=== PATIENT | male | born 1965 | race Caucasian/White ===

== ENCOUNTER 2019-08-26 22:17 | Emergency (ER) | payer SELFPAY ==
[2019-08-27] MEDS ORDERED: ASPIRIN 325 MG TAB PO ONE (01:17)
[2019-08-27 01:18] VITALS: BP 125/80
--- NOTE | 2019-08-27 01:52 | XRay Report ---
CHEST 1 VIEW INDICATION: Chest Pain. COMPARISON: 08/14/2018 FINDINGS: SUPPORT DEVICES: None. HEART / MEDIASTINUM: No significant abnormality. LUNGS / PLEURA: No significant pulmonary or pleural abnormality. No pneumothorax. ADDITIONAL FINDINGS: Median sternotomy changes noted IMPRESSION: 1. No acute findings. Signer Name: Anupam Red MD Signed: 08/27/2019 1:48 AM Workstation Name: [id number]
[2019-08-27 02:13] LABS: Basophils % (Auto) 0.5 % (0.0-1.8); Eosinophils # (Auto) 0.1 K/mm3 (0.0-0.4); Eosinophils % (Auto) 0.9 % (0.0-4.3); Hematocrit 48.1 % (35.5-45.6); Hemoglobin 16.6 gm/dl (11.8-15.2); Lymphocytes # (Auto) 1.8 K/mm3 (1.2-5.4); Lymphocytes % (Auto) 29.4 % (13.4-35.0); Mean Corpuscular HGB Conc 34 % (32-34); Mean Corpuscular Volume 97 fl (84-94); Monocytes # (Auto) 0.5 K/mm3 (0.0-0.8); Monocytes % (Auto) 8.8 % (0.0-7.3); Platelet Count 188 K/mm3 (140-440); Red Blood Count 4.99 M/mm3 (3.65-5.03); Red Cell Distribution Width 13.8 % (13.2-15.2)
[2019-08-27 02:36] LABS: BUN/Creatinine Ratio 26; Blood Urea Nitrogen 18 mg/dL (9-20); Calcium 9.3 mg/dL (8.4-10.2); Hemolysis Index 56
== END 2019-08-27 03:34 ==
LOC: ED 22:17
DX: R07.89 Other chest pain (principal); Z53.21 Procedure and treatment not carried out due to patient leaving prior to being seen by health care provider
CPT/HCPCS: 36415; 71045; 80048; 84484; 85025; 93005; 93010

== ENCOUNTER 2019-09-01 21:55 | Emergency (ER) | payer SELFPAY ==
[2019-09-01] MEDS ORDERED: ASPIRIN 325 MG TAB PO ONE (22:31)
--- NOTE | 2019-09-01 22:31 | Event Note ---
ED Screening Note Date of service: 09/01/19 Time: 22:30 ED Screening Note: 54 y o male with pmh of Herat dz and surgery presents with chest pain This initial assessment/diagnostic orders/clinical plan/treatment(s) is/are subject to change based on patients health status, clinical progression and re- assessment by fellow clinical providers in the ED. Further treatment and workup at subsequent clinical providers discretion. Patient/guardian urged not to elope from the ED as their condition may be serious if not clinically assessed and managed. Initial orders include: labs, ekg main side eval
[2019-09-01 23:30] LABS: Basophils % (Auto) 0.5 % (0.0-1.8); Eosinophils % (Auto) 0.6 % (0.0-4.3); Hematocrit 47.4 % (35.5-45.6); Hemoglobin 16.6 gm/dl (11.8-15.2); Lymphocytes # (Auto) 1.5 K/mm3 (1.2-5.4); Lymphocytes % (Auto) 23.6 % (13.4-35.0); Mean Corpuscular HGB Conc 35 % (32-34); Mean Corpuscular Volume 95 fl (84-94); Monocytes # (Auto) 0.6 K/mm3 (0.0-0.8); Monocytes % (Auto) 9.8 % (0.0-7.3); Platelet Count 169 K/mm3 (140-440); Red Blood Count 4.98 M/mm3 (3.65-5.03); Red Cell Distribution Width 13.7 % (13.2-15.2)
[2019-09-01 23:38] LABS: INR 2.61 (0.87-1.13)
[2019-09-01 23:39] LABS: Partial Thromboplastin Time 37.8 Sec. (24.2-36.6)
[2019-09-01 23:52] LABS: BUN/Creatinine Ratio 17; Blood Urea Nitrogen 15 mg/dL (9-20); Calcium 9.5 mg/dL (8.4-10.2); Hemolysis Index 16
--- NOTE | 2019-09-01 23:52 | XRay Report ---
CHEST PA AND LATERAL VIEWS INDICATION: Chest Pain. COMPARISON: 08/27/2019 FINDINGS: Support devices: None Heart: Normal and unchanged previous sternotomy with mitral valve prosthesis Lungs/Pleura: No acute pulmonary or pleural findings. IMPRESSION: 1. No acute disease and no interval change. Signer Name: Vito Martin MD Signed: 09/01/2019 11:48 PM Workstation Name: [id number]
[2019-09-02] MEDS ORDERED: ALUM-MAG HYDROXIDE-SIMETHICONE 200-200-20MG/5ML ORAL LIQD 30 ML PO ONE (01:59)
[2019-09-02] MEDS ORDERED: FAMOTIDINE 20 MG/2 ML INJ IV ONE (01:59)
[2019-09-02] MEDS ORDERED: LIDOCAINE VISCOUS 2% 15 ML ORAL LIQD PO ONE (01:59)
[2019-09-02] MEDS ORDERED: FAMOTIDINE 20 MG TAB ONE (03:08)
--- NOTE | 2019-09-02 03:28 | Emergency Department Report ---
ED Abdominal Pain HPI - General Chief Complaint: Chest Pain Stated Complaint: CHEST PAIN Time Seen by Provider: 09/02/19 01:48 Source: patient Mode of arrival: Ambulatory Limitations: No Limitations - History of Present Illness Initial Comments: Patient is a 54-year-old male with a past medical history diabetes hypertension and an MT who is presenting with epigastric and left upper quadrant pain that he states radiates into his chest. It's worse when he eats. Since been present for approximately a week. Patient states he was placed on me dications by his primary doctor for gastritis he states is not helping. Patient states that the pain as a 5 out of 10 at its worse. - Related Data Previous Rx's Medication Instructions Recorded Last Taken Type Phenazopyridine [Pyridium] 200 mg PO TID #6 tablet 01/24/14 Unknown Rx Sulfamethoxazole/Trimethoprim 1 each PO BID #28 tablet 01/24/14 Unknown Rx [Bactrim DS TAB] Furosemide [Lasix TAB] 40 mg PO QDAY #30 tablet 08/23/18 Unknown Rx Spironolactone [Aldactone] 25 mg PO QDAY #30 tablet 08/23/18 Unknown Rx Warfarin [Coumadin] 7.5 mg PO QDAY #30 tablet 08/23/18 Unknown Rx carvediloL [Coreg] 6.25 mg PO BID #60 tablet 08/23/18 Unknown Rx guaiFENesin ER [Mucinex ER] 600 mg PO BID #10 tablet 08/23/18 Unknown Rx Pantoprazole [Protonix] 40 mg PO QDAY #30 tablet 09/02/19 Unknown Rx traMADoL [Ultram] 50 mg PO Q6HR PRN #12 tablet 09/02/19 Unknown Rx Allergies Allergy/AdvReac Type Severity Reaction Status Date / Time No Known Allergies Allergy Unverified 01/24/14 16:20 ED Review of Systems ROS: Stated complaint: CHEST PAIN Other details as noted in HPI Comment: All other systems reviewed and negative ED Past Medical Hx - Past Medical History Previous Medical History?: Yes Hx Hypertension: Yes Hx Heart Attack/AMI: Yes Hx Diabetes: Yes Additional medical history: HOLE IN HEART, WARFARIN [place]. - Surgical History Past Surgical History?: Yes Hx Open Heart Surgery: Yes Additional Surgical History: MITRAL VALVE SGX DUE TO INFECTION? - Social History Smoking Status: Former Smoker Substance Use Type: None - Medications Home Medications: Home Medications Medication Instructions Recorded Confirmed Last Taken Type Phenazopyridine [Pyridium] 200 mg PO TID #6 tablet 01/24/14 08/16/18 Unknown Rx Sulfamethoxazole/Trimethoprim 1 each PO BID #28 tablet 01/24/14 08/16/18 Unknown Rx [Bactrim DS TAB] Furosemide [Lasix TAB] 40 mg PO QDAY #30 tablet 08/23/18 Unknown Rx Spironolactone [Aldactone] 25 mg PO QDAY #30 tablet 08/23/18 Unknown Rx Warfarin [Coumadin] 7.5 mg PO QDAY #30 tablet 08/23/18 Unknown Rx carvediloL [Coreg] 6.25 mg PO BID #60 tablet 08/23/18 Unknown Rx guaiFENesin ER [Mucinex ER] 600 mg PO BID #10 tablet 08/23/18 Unknown Rx Pantoprazole [Protonix] 40 mg PO QDAY #30 tablet 09/02/19 Unknown Rx traMADoL [Ultram] 50 mg PO Q6HR PRN #12 tablet 09/02/19 Unknown Rx ED Physical Exam - General Limitations: No Limitations General appearance: alert, in no apparent distress - Head Head exam: Present: atraumatic, normocephalic - Eye Eye exam: Present: normal appearance - ENT ENT exam: Present: mucous membranes moist - Neck Neck exam: Present: normal inspection - Respiratory Respiratory exam: Present: normal lung sounds bilaterally. Absent: respiratory distress, wheezes, rales, rhonchi - Cardiovascular Cardiovascular Exam: Present: regular rate, normal rhythm, normal heart sounds. Absent: systolic murmur, diastolic murmur, rubs, gallop - GI/Abdominal GI/Abdominal exam: Present: soft, tenderness (LUQ), normal bowel sounds. Absent: distended, guarding, rebound - Rectal Rectal exam: Present: deferred - Extremities Exam Extremities exam: Present: normal inspection - Back Exam Back exam: Present: normal inspection - Neurological Exam Neurological exam: Present: alert, oriented X3 - Psychiatric Psychiatric exam: Present: normal affect, normal mood - Skin Skin exam: Present: warm, dry, intact, normal color. Absent: rash ED Course Vital Signs 09/01/19 22:02 Temperature 98.5 F Pulse Rate 88 Respiratory 20 Rate Blood Pressure 128/86 O2 Sat by Pulse 100 Oximetry ED Medical Decision Making - Lab Data Result diagrams: 09/01/19 22:40 09/01/19 22:40 Lab Results 09/01/19 09/01/19 09/01/19 Range/Units 22:40 22:40 22:40 WBC 6.5 (4.5-11.0) K/mm3 RBC 4.98 (3.65-5.03) M/mm3 Hgb 16.6 H (11.8-15.2) gm/dl Hct 47.4 H (35.5-45.6) % MCV 95 H (84-94) fl MCH 33 H (28-32) pg MCHC 35 H (32-34) % RDW 13.7 (13.2-15.2) % Plt Count 169 (140-440) K/mm3 Lymph % (Auto) 23.6 (13.4-35.0) % [place] % (Auto) 9.8 H (0.0-7.3) % Eos % (Auto) 0.6 (0.0-4.3) % Baso % (Auto) 0.5 (0.0-1.8) % Lymph # 1.5 (1.2-5.4) K/mm3 [place] # 0.6 (0.0-0.8) K/mm3 Eos # 0.0 (0.0-0.4) K/mm3 Baso # 0.0 (0.0-0.1) K/mm3 Seg Neutrophils % 65.5 (40.0-70.0) % Seg Neutrophils # 4.3 (1.8-7.7) K/mm3 PT 28.5 H (12.2-14.9) Sec. INR 2.61 H (0.87-1.13) APTT 37.8 H (24.2-36.6) Sec. Sodium 136 L (137-145) mmol/L Potassium 3.9 (3.6-5.0) mmol/L Chloride 97.8 L (98-107) mmol/L Carbon Dioxide 24 (22-30) mmol/L Anion Gap 18 mmol/L BUN 15 (9-20) mg/dL Creatinine 0.9 (0.8-1.5) mg/dL Estimated GFR > 60 ml/min BUN/Creatinine Ratio 17 % Glucose 148 H (75-100) mg/dL Calcium 9.5 (8.4-10.2) mg/dL Troponin T < 0.010 (0.00-0.029) ng/mL 09/02/19 Range/Units 01:51 WBC (4.5-11.0) K/mm3 RBC (3.65-5.03) M/mm3 Hgb (11.8-15.2) gm/dl Hct (35.5-45.6) % MCV (84-94) fl MCH (28-32) pg MCHC (32-34) % RDW (13.2-15.2) % Plt Count (140-440) K/mm3 Lymph % (Auto) (13.4-35.0) % [place] % (Auto) (0.0-7.3) % Eos % (Auto) (0.0-4.3) % Baso % (Auto) (0.0-1.8) % Lymph # (1.2-5.4) K/mm3 [place] # (0.0-0.8) K/mm3 Eos # (0.0-0.4) K/mm3 Baso # (0.0-0.1) K/mm3 Seg Neutrophils % (40.0-70.0) % Seg Neutrophils # (1.8-7.7) K/mm3 PT (12.2-14.9) Sec. INR (0.87-1.13) APTT (24.2-36.6) Sec. Sodium (137-145) mmol/L Potassium (3.6-5.0) mmol/L Chloride (98-107) mmol/L Carbon Dioxide (22-30) mmol/L Anion Gap mmol/L BUN (9-20) mg/dL Creatinine (0.8-1.5) mg/dL Estimated GFR ml/min BUN/Creatinine Ratio % Glucose (75-100) mg/dL Calcium (8.4-10.2) mg/dL Troponin T < 0.010 (0.00-0.029) ng/mL - EKG Data -: EKG Interpreted by [facility] EKG shows normal: sinus rhythm, axis, intervals, QRS complexes, ST-T waves Rate: normal - EKG Data Interpretation: normal EKG - Radiology Data CHEST PA AND LATERAL VIEWS INDICATION: Chest Pain. COMPARISON: 08/27/2019 FINDINGS: Support devices: None Heart: Normal and unchanged previous sternotomy with mitral valve prosthesis Lungs/Pleura: No acute pulmonary or pleural findings. IMPRESSION: 1. No acute disease and no interval change. Signer Name: Vito Martin MD Signed: 09/01/2019 11:48 PM Workstation Name: [id number] - Medical Decision Making Patient's symptoms most consistent with GERD and peptic ulcer disease. Because of the patient's cardiac history 2 troponins been done which are negative. Patient is therapeutic on his warfarin for his mitral valve replacement. Irene ent to be given medications for symptomatic relief and follow up with gastroenterology Critical care attestation.: If time is entered above; I have spent that time in minutes in the direct care of this critically ill patient, excluding procedure time. ED Disposition Clinical Impression: PUD (peptic ulcer disease) Disposition: DC-01 TO HOME OR SELFCARE Is pt being admited?: No Does the pt Need Aspirin: No Condition: Stable Instructions: Peptic Ulcer (ED), Diet for Ulcers and Gastritis (ED) Referrals: [facility] [Provider Group] - 3-5 Days Time of Disposition: 03:33
[2019-09-02 03:59] VITALS: BP 113/71
== END 2019-09-02 03:40 | disposition home or self-care (01) ==
LOC: ED 21:55
DX: K27.9 Peptic ulcer, site unspecified, unspecified as acute or chronic, without hemorrhage or perforation (principal); I10 Essential (primary) hypertension; I25.2 Old myocardial infarction; E11.9 Type 2 diabetes mellitus without complications; Z87.891 Personal history of nicotine dependence; Z79.899 Other long term (current) drug therapy
CPT/HCPCS: 36415; 71046; 80048; 84484; 85025; 85610; 85730; 93005; 93010; 96374

== ENCOUNTER 2021-03-14 22:38 | Observation (INO) | payer SELFPAY ==
[2021-03-14] MEDS ORDERED: ASPIRIN 325 MG TAB PO ONE (23:11)
--- NOTE | 2021-03-14 23:11 | Emergency Department Report ---
ED Chest Pain HPI - General Chief Complaint: Chest Pain Stated Complaint: CHEST PAIN PUI?: No Time Seen by Provider: 03/14/21 23:08 Source: patient Mode of arrival: Ambulatory Limitations: No Limitations - History of Present Illness Initial Comments: Patient is a 56-year-old male emergency room with complaints of chest pain and shortness of breath. Patient states his symptoms started 2 hours prior to arrival. Patient states that the symptoms are better with rest and worse with exertion. Patient denies fever chills. Patient denies cough. Patient denies burping. Patient denies acid reflux. Patient states that the shortness of breath is better with rest and worse with exertion. Patient states he has a history of diabetes, hyperlipidemia. Patient states he does have a history of hypertension. Patient states he is insulin-dependent diabetic. Patient states he has not taken his cholesterol medications in 2 months. Patient states he takes an aspirin every day. Patient denies recent travel. Patient denies recent international travel. Patient denies exposure to the novel coronavirus. Patient denies sick contacts. Patient denies fever and chills. Patient denies cough. Patient denies diarrhea. Patient denies coming in contact with anybody with symptoms of the novel coronavirus. MD Complaint: chest pain -: Sudden, hour(s) Pain Location: left chest Pain Radiation: none Severity: severe Severity scale (0 -10): 10 Quality: sharp Consistency: constant Improves With: rest Worsens With: exertion re: dyspnea. denies: nausea, vomting, diaphoresis, sense of impending doom Other Symptoms: denies: cough, fever, syncope, rash, acid taste in mouth, leg swelling, palpitations, burping Treatments Prior to Arrival: none Aspirin use within the Past 7 Days: (1) Yes - Related Data On Oral Contraceptives: No Previous Rx's Medication Instructions Recorded Last Taken Type Phenazopyridine [Pyridium] 200 mg PO TID #6 tablet 01/24/14 Unknown Rx Sulfamethoxazole/Trimethoprim 1 each PO BID #28 tablet 01/24/14 Unknown Rx [Bactrim DS TAB] Furosemide [Lasix TAB] 40 mg PO QDAY #30 tablet 08/23/18 Unknown Rx Spironolactone [Aldactone] 25 mg PO QDAY #30 tablet 08/23/18 Unknown Rx Warfarin [Coumadin] 7.5 mg PO QDAY #30 tablet 08/23/18 Unknown Rx carvediloL [Coreg] 6.25 mg PO BID #60 tablet 08/23/18 Unknown Rx guaiFENesin ER [Mucinex ER] 600 mg PO BID #10 tablet 08/23/18 Unknown Rx Pantoprazole [Protonix] 40 mg PO QDAY #30 tablet 09/02/19 Unknown Rx traMADoL [Ultram] 50 mg PO Q6HR PRN #12 tablet 09/02/19 Unknown Rx Allergies Allergy/AdvReac Type Severity Reaction Status Date / Time No Known Allergies Allergy Unverified 01/24/14 16:20 Heart Score - HEART Score History: Moderately suspicious EKG: Non-specific Age: 45-65 Risk factors: > 3 risk factors or hx of atherosclerotic disease Troponin: < normal limit HEART Score: 5 - EKG Read Time Time EKG Completed: 22:52 EKG Read Time: 22:54 ED Review of Systems ROS: Stated complaint: CHEST PAIN Other details as noted in HPI Constitutional: denies: chills, fever Eyes: denies: eye pain, eye discharge, vision change ENT: denies: ear pain, throat pain Respiratory: see HPI, shortness of breath. denies: cough, wheezing Cardiovascular: as per HPI, chest pain. denies: palpitations Endocrine: no symptoms reported Gastrointestinal: denies: abdominal pain, nausea, diarrhea Genitourinary: denies: urgency, dysuria Musculoskeletal: denies: back pain, joint swelling, arthralgia Skin: denies: rash, lesions Neurological: denies: headache, weakness, paresthesias Psychiatric: denies: anxiety, depression Hematological/Lymphatic: denies: easy bleeding, easy bruising ED Past Medical Hx - Past Medical History Previous Medical History?: Yes Hx Hypertension: Yes Hx Heart Attack/AMI: Yes Hx Diabetes: Yes Additional medical history: HOLE IN HEART, WARFARIN [place]. - Surgical History Past Surgical History?: Yes Hx Open Heart Surgery: Yes Additional Surgical History: MITRAL VALVE SGX DUE TO INFECTION? - Family History Family history: no significant - Social History Smoking Status: Former Smoker Substance Use Type: None - Medications Home Medications: Home Medications Medication Instructions Recorded Confirmed Last Taken Type Phenazopyridine [Pyridium] 200 mg PO TID #6 tablet 01/24/14 08/16/18 Unknown Rx Sulfamethoxazole/Trimethoprim 1 each PO BID #28 tablet 01/24/14 08/16/18 Unknown Rx [Bactrim DS TAB] Furosemide [Lasix TAB] 40 mg PO QDAY #30 tablet 08/23/18 Unknown Rx Spironolactone [Aldactone] 25 mg PO QDAY #30 tablet 08/23/18 Unknown Rx Warfarin [Coumadin] 7.5 mg PO QDAY #30 tablet 08/23/18 Unknown Rx carvediloL [Coreg] 6.25 mg PO BID #60 tablet 08/23/18 Unknown Rx guaiFENesin ER [Mucinex ER] 600 mg PO BID #10 tablet 08/23/18 Unknown Rx Pantoprazole [Protonix] 40 mg PO QDAY #30 tablet 09/02/19 Unknown Rx traMADoL [Ultram] 50 mg PO Q6HR PRN #12 tablet 09/02/19 Unknown Rx ED Physical Exam - General Limitations: Language Barrier General appearance: alert, in no apparent distress - Head Head exam: Present: atraumatic, normocephalic - Eye Eye exam: Present: normal appearance - ENT ENT exam: Present: mucous membranes moist - Neck Neck exam: Present: normal inspection - Respiratory Respiratory exam: Present: normal lung sounds bilaterally. Absent: respiratory distress, wheezes, rales, rhonchi, stridor, chest wall tenderness - Cardiovascular Cardiovascular Exam: Present: regular rate, normal rhythm. Absent: systolic murmur, diastolic murmur, rubs, gallop - GI/Abdominal GI/Abdominal exam: Present: soft, normal bowel sounds - Rectal Rectal exam: Present: deferred - Extremities Exam Extremities exam: Present: normal inspection - Back Exam Back exam: Present: normal inspection - Neurological Exam Neurological exam: Present: alert, oriented X3 - Psychiatric Psychiatric exam: Present: normal affect, normal mood - Skin Skin exam: Present: warm, dry, intact, normal color. Absent: rash ED Course Vital Signs 03/14/21 23:10 Temperature 98.3 F Pulse Rate 70 Respiratory 17 Rate Blood Pressure 135/76 O2 Sat by Pulse 99 Oximetry - Reevaluation(s) Reevaluation #1: I discussed all results with patient. I discussed plan of care with patient. Patient agrees with plan of care and admission. Patient to be admitted to the hospitalist service. 03/15/21 00:12 - Consultations Consultation #1: Hospitalist consulted for admission. Hospitalist to admit patient. 03/15/21 00:12 DAJUAN score - Dajuan Score Age > 65: (0) No Aspirin use within the Past 7 Days: (1) Yes 3 or more CAD Risk Factors: (1) Yes 2 or more Angina events in past 24 hrs: (0) No Known CAD with more than 50% Stenosis: (0) No Elevated Cardiac Markers: (0) No ST Deviation Greater than 0.5mm: (0) No DAJUAN Score: 2 ED Medical Decision Making - Lab Data Result diagrams: 03/14/21 23:19 03/14/21 23:19 - EKG Data -: EKG Interpreted by Me EKG shows normal: sinus rhythm, axis, intervals, QRS complexes, ST-T waves Rate: normal - Radiology Data Radiology results: report reviewed, image reviewed interpreted by me: Chest x-ray: No pneumonia, no pneumothorax, no foreign body, no osseous findings, no acute findings XR chest 1V ap INDICATION / CLINICAL INFORMATION: Chest Pain. COMPARISON: 09/01/2019. FINDINGS: SUPPORT DEVICES: None. HEART /PULMONARY VASCULATURE: Stable postoperative changes. Heart is accentuated without significant pulmonary vasculature congestion. LUNGS / PLEURA: No significant pulmonary or pleural abnormality. No pneumothorax. ADDITIONAL FINDINGS: No significant additional findings. IMPRESSION: 1. No acute findings. - Medical Decision Making Patient is a 56-year-old male who presents emergency room with complaints of chest pain. Patient chest pain started 2 hours prior to arrival. Patient has history of diabetes and hyperlipidemia. Patient is noncompliant with his cholesterol medications. Patient has history of mitral valve replacement and is currently on Coumadin. Patient is compliant with his Coumadin. Patient is insulin-dependent diabetic. Patient also complained of shortness of breath. Patient had labs done which were essentially unremarkable. Patient's initial troponin was negative. Patient had a chest x-ray which was negative for acute finding. Patient had an EKG which showed a normal ST segment and no other acute findings. I personally reviewed EKG and chest x-ray. Patient's heart score is elevated. Patient requires inpatient rule out for ACS. Patient given aspirin after initial evaluation. Patient admitted to the hospital service for further evaluation treatment and rule out ACS. Critical care time documented due to the multiple reassessments, prolonged time at the bedside, interpretation of diagnostics and labs. - Differential Diagnosis Chest pain, ACS, diabetes, hyperlipidemia, Critical Care Time: Yes Critical care time in (mins) excluding proc time.: 35 Critical care attestation.: If time is entered above; I have spent that time in minutes in the direct care of this critically ill patient, excluding procedure time. Critical Care Time: 35 minutes ED Disposition Clinical Impression: S/P MVR (mitral valve replacement) Chest pain Qualifiers: Chest pain type: unspecified Qualified Code(s): R07.9 - Chest pain, unspecified CAD (coronary artery disease) Qualifiers: Coronary Disease-Associated Artery/Lesion type: unspecified vessel or lesion type [place] vs. transplanted heart: [place] heart Associated angina: unspecified whether angina present Qualified Code(s): I25.10 - Atherosclerotic heart disease of [place] coronary artery without angina pectoris Disposition: OP ADMIT IP TO THIS HOSP Is pt being admited?: Yes Does the pt Need Aspirin: No Condition: Critical Time of Disposition: 00:15
[2021-03-14 23:34] LABS: Basophils % (Auto) 0.7 % (0.0-1.8); Eosinophils # (Auto) 0.1 K/mm3 (0.0-0.4); Eosinophils % (Auto) 1.6 % (0.0-4.3); Hematocrit 43.4 % (35.5-45.6); Hemoglobin 15.2 gm/dl (11.8-15.2); Lymphocytes # (Auto) 1.4 K/mm3 (1.2-5.4); Lymphocytes % (Auto) 28.7 % (13.4-35.0); Mean Corpuscular HGB Conc 35 % (32-34); Mean Corpuscular Volume 98 fl (84-94); Monocytes # (Auto) 0.5 K/mm3 (0.0-0.8); Monocytes % (Auto) 10.5 % (0.0-7.3); Platelet Count 183 K/mm3 (140-440); Red Blood Count 4.43 M/mm3 (3.65-5.03); Red Cell Distribution Width 13.7 % (13.2-15.2)
[2021-03-14 23:41] LABS: INR 2.66 (0.87-1.13)
[2021-03-14 23:42] LABS: Partial Thromboplastin Time 37.5 Sec. (24.2-36.6)
[2021-03-14 23:53] LABS: Alanine Aminotransferase 16 units/L (7-56); Albumin 4.3 g/dL (3.9-5); BUN/Creatinine Ratio 28; Blood Urea Nitrogen 22 mg/dL (9-20); Calcium 8.7 mg/dL (8.4-10.2); Hemolysis Index 13
--- NOTE | 2021-03-15 00:03 | XRay Report ---
XR chest 1V ap INDICATION / CLINICAL INFORMATION: Chest Pain. COMPARISON: 09/01/2019. FINDINGS: SUPPORT DEVICES: None. HEART /PULMONARY VASCULATURE: Stable postoperative changes. Heart is accentuated without significant pulmonary vasculature congestion. LUNGS / PLEURA: No significant pulmonary or pleural abnormality. No pneumothorax. ADDITIONAL FINDINGS: No significant additional findings. IMPRESSION: 1. No acute findings. Signer Name: Matty Hopson MD Signed: 03/14/2021 11:59 PM Workstation Name: [id number]
[2021-03-15] MEDS ORDERED: traMADol 50 MG TAB PO PRN (01:04)
[2021-03-15] MEDS ORDERED: ACETAMINOPHEN 325 MG TAB PO PRN (01:04)
[2021-03-15] MEDS ORDERED: DEXTROSE 50% IN WATER (25GM) 50 ML SYRINGE IV PRN (01:04)
[2021-03-15] MEDS ORDERED: NITROGLYCERIN 0.4 MG TAB SUBL SL PRN (01:04)
[2021-03-15] MEDS ORDERED: MORPHINE 2 MG/1 ML INJ IV PRN (01:04)
--- NOTE | 2021-03-15 01:14 | History and Physical Report ---
History of Present Illness Date of examination: 03/15/21 Date of admission: 03/15/21 Chief complaint: Chest pain History of present illness: 56 years old male with past medical history of diabetes hypertension and [place] was brought to the emergency room because of chest pain which is sharp 10/10 constant in the left side of the chest for the past 2 hours prior to arrival. Patient states that the symptoms are better with rest and worse with exertion. Patient denies fever chills. Patient denies cough. Patient denies burping. Patient denies acid reflux. Patient states that the shortness of breath is better with rest and worse with exertion. Patient states he has not taken his cholesterol medications in 2 months. Patient states he takes an aspirin every day. Initial cardiac enzyme in the ER is 0.010 Past History Past Medical History: acute [place], diabetes, hypertension, hyperlipidemia Medications and Allergies Allergies Allergy/AdvReac Type Severity Reaction Status Date / Time No Known Allergies Allergy Unverified 01/24/14 16:20 Home Medications Medication Instructions Recorded Confirmed Last Taken Type Warfarin [Coumadin] 7.5 mg PO QDAY #30 tablet 08/23/18 Unknown Rx Insulin NPH Hum/Reg Insulin Hm 03/15/21 Unknown History [HumuLIN 70/30 Kwikpen] Active Meds: Active Medications Sodium Chloride (Sodium Chloride 0.9% 10 Ml Flush Syringe) 10 ml IV PRN PRN PRN Reason: LINE FLUSH Tramadol HCl (Tramadol 50 Mg Tab) 50 mg PO Q6H PRN PRN Reason: Pain, Moderate (4-6) Warfarin Sodium (Warfarin 7.5 Mg Tab) 7.5 mg PO QDAY YOAN; Protocol Review of Systems Cardiovascular: chest pain, shortness of breath, dyspnea on exertion Respiratory: shortness of breath Exam - Constitutional Vitals: Temp Pulse Resp BP Pulse Ox 98.3 F 65 14 128/78 97 03/14/21 23:10 03/15/21 00:30 03/15/21 00:30 03/15/21 00:30 03/15/21 00:30 General appearance: Present: no acute distress, well-nourished - EENT Eyes: Present: PERRL ENT: hearing intact, clear oral mucosa - Neck Neck: Present: supple, normal ROM - Respiratory Respiratory effort: normal Respiratory: bilateral: diminished - Cardiovascular Heart Sounds: Present: S1 & S2. Absent: rub, click - Extremities Extremities: pulses symmetrical, No edema Peripheral Pulses: within normal limits - Abdominal General gastrointestinal: Present: soft, non-tender, non-distended, normal bowel sounds Male genitourinary: Present: normal - Integumentary Integumentary: Present: clear, warm, dry - Musculoskeletal Musculoskeletal: gait normal, strength equal bilaterally - Psychiatric Psychiatric: appropriate mood/affect, intact judgment & insight - Neurologic Neurologic: CNII-XII intact, moves all extremities HEART Score - HEART Score EKG: Non-specific Age: 45-65 Risk factors: > 3 risk factors or hx of atherosclerotic disease Troponin: Troponin T < 0.010 ng/mL (0.00-0.029) 03/14/21 23:19 Troponin: < normal limit Results - Labs CBC & Chem 7: 03/14/21 23:19 03/14/21 23:19 Labs: Laboratory Last Values WBC 4.8 K/mm3 (4.5-11.0) 03/14/21 23:19 RBC 4.43 M/mm3 (3.65-5.03) 03/14/21 23:19 Hgb 15.2 gm/dl (11.8-15.2) 03/14/21 23:19 Hct 43.4 % (35.5-45.6) 03/14/21 23:19 MCV 98 fl (84-94) H 03/14/21 23:19 MCH 34 pg (28-32) H 03/14/21 23:19 MCHC 35 % (32-34) H 03/14/21 23:19 RDW 13.7 % (13.2-15.2) 03/14/21 23:19 Plt Count 183 K/mm3 (140-440) 03/14/21 23:19 Lymph % (Auto) 28.7 % (13.4-35.0) 03/14/21 23:19 Josephine % (Auto) 10.5 % (0.0-7.3) H 03/14/21 23:19 Eos % (Auto) 1.6 % (0.0-4.3) 03/14/21 23:19 Baso % (Auto) 0.7 % (0.0-1.8) 03/14/21 23:19 Lymph # (Auto) 1.4 K/mm3 (1.2-5.4) 03/14/21 23:19 Josephine # (Auto) 0.5 K/mm3 (0.0-0.8) 03/14/21 23:19 Eos # (Auto) 0.1 K/mm3 (0.0-0.4) 03/14/21 23:19 Baso # (Auto) 0.0 K/mm3 (0.0-0.1) 03/14/21 23:19 Seg Neutrophils % 58.5 % (40.0-70.0) 03/14/21 23:19 Seg Neutrophils # 2.8 K/mm3 (1.8-7.7) 03/14/21 23:19 PT 28.6 Sec. (12.2-14.9) H 03/14/21 23:19 INR 2.66 (0.87-1.13) H 03/14/21 23:19 APTT 37.5 Sec. (24.2-36.6) H 03/14/21 23:19 Sodium 140 mmol/L (137-145) 03/14/21 23:19 Potassium 4.2 mmol/L (3.6-5.0) 03/14/21 23:19 Chloride 104.0 mmol/L (98-107) 03/14/21 23:19 Carbon Dioxide 26 mmol/L (22-30) 03/14/21 23:19 Anion Gap 14 mmol/L 03/14/21 23:19 BUN 22 mg/dL (9-20) H 03/14/21 23:19 Creatinine 0.8 mg/dL (0.8-1.3) 03/14/21 23:19 Estimated GFR > 60 ml/min 03/14/21 23:19 BUN/Creatinine Ratio 28 % 03/14/21 23:19 Glucose 143 mg/dL (75-100) H 03/14/21 23:19 Calcium 8.7 mg/dL (8.4-10.2) 03/14/21 23:19 Total Bilirubin 0.60 mg/dL (0.1-1.2) 03/14/21 23:19 AST 22 units/L (5-40) 03/14/21 23:19 ALT 16 units/L (7-56) 03/14/21 23:19 Alkaline Phosphatase 81 units/L (35-129) 03/14/21 23:19 Troponin T < 0.010 ng/mL (0.00-0.029) 03/14/21 23:19 Total Protein 6.9 g/dL (6.3-8.2) 03/14/21 23:19 Albumin 4.3 g/dL (3.9-5) 03/14/21 23:19 Albumin/Globulin Ratio 1.7 % 03/14/21 23:19 - Imaging and Cardiology Chest x-ray: report reviewed Assessment and Plan VTE prophylaxis?: Chemical Plan of care discussed with patient/family: Yes - Patient Problems (1) Acute coronary syndrome Status: Acute Plan to address problem: Admit the patient to the medical telemetry. Aspirin 81 mg p.o. daily. Lipitor 40 mg p.o. daily. Nitroglycerin as needed. Patient is on Coumadin 7.5 mg p.o. daily. Serial cardiac enzyme. Echocardiogram. Cardiology consult (2) CAD (coronary artery disease) Status: Acute Qualifiers: Coronary Disease-Associated Artery/Lesion type: unspecified vessel or lesion type [place] vs. transplanted heart: [place] heart Associated angina: unspe cified whether angina present Qualified Code(s): I25.10 - Atherosclerotic heart disease of [place] coronary artery without angina pectoris Plan to address problem: Aspirin 81 mg p.o. daily. Lipitor 40 mg p.o. daily. Nitroglycerin as needed. Patient is on Coumadin 7.5 mg p.o. daily. Serial cardiac enzyme. Echocardiogram. Cardiology consult (3) HTN (hypertension) Status: Acute Plan to address problem: Hydralazine 10 mg IV every 6 hours as needed. We will monitor the blood pressure closely (4) S/P MVR (mitral valve replacement) Status: Acute Plan to address problem: Stable. Patient is on Coumadin with therapeutic INR. Echocardiogram. Cardiology consult (5) DVT prophylaxis Status: Acute Plan to address problem: Patient is on Coumadin with therapeutic INR for DVT prophylaxis. Pepcid 20 mg p.o. twice daily for GI prophylaxis. Patient is a full code
[2021-03-15] MEDS ORDERED: hydrALAZINE 20 MG/1 ML INJ IV PRN (01:15)
[2021-03-15 02:04] LABS: Basophils % (Auto) 0.7 % (0.0-1.8); Eosinophils # (Auto) 0.1 K/mm3 (0.0-0.4); Eosinophils % (Auto) 1.5 % (0.0-4.3); Hematocrit 43.3 % (35.5-45.6); Hemoglobin 15.3 gm/dl (11.8-15.2); Lymphocytes # (Auto) 1.2 K/mm3 (1.2-5.4); Lymphocytes % (Auto) 25.6 % (13.4-35.0); Mean Corpuscular HGB Conc 35 % (32-34); Mean Corpuscular Volume 97 fl (84-94); Monocytes # (Auto) 0.4 K/mm3 (0.0-0.8); Monocytes % (Auto) 9.3 % (0.0-7.3); Platelet Count 169 K/mm3 (140-440); Red Blood Count 4.48 M/mm3 (3.65-5.03); Red Cell Distribution Width 13.7 % (13.2-15.2)
[2021-03-15] MEDS ORDERED: ASPIRIN 81 MG TAB CHEW PO ONE (02:08)
[2021-03-15 02:13] LABS: BUN/Creatinine Ratio 25; Blood Urea Nitrogen 20 mg/dL (9-20); Calcium 8.7 mg/dL (8.4-10.2); Hemolysis Index 21
[2021-03-15] MEDS ORDERED: HEPARIN 5,000 UNIT/1 ML VIAL SUB-Q SCH (06:00)
[2021-03-15] MEDS: INSULIN LISPRO 100 UNIT/ML SUB-Q SCH ×4 (08:51→21:27)
--- NOTE | 2021-03-15 10:48 | Electrocardiograph Report ---
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
--- NOTE | 2021-03-15 10:54 | Electrocardiograph Report ---
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 Electronically Signed On 03-15-2021 10:54:36 EDT by Ez Dwyer
[2021-03-15] MEDS: PANTOPRAZOLE 40 MG TAB PO SCH (11:46)
--- NOTE | 2021-03-15 12:29 | Event Note ---
Date: 03/15/21 Patient was seen and evaluated this morning. Patient states chest pain resolved. Cardiology consulted. Continue management as outlined in HPI. Patient admitted earlier this morning.
--- NOTE | 2021-03-15 14:18 | Consultation ---
History of Present Illness Consult date: 03/15/21 Consult reason: chest pain History of present illness: The patient is a 56-year-old man with a history of endocarditis, followed by mechanical mitral valve replacement in 2010 in [place]. He currently follows up with a software packaging engineer at [facility] where his INR is monitored on a regular basis. In addition to his valvular disease, he also has a presumably nonischemic cardiomyopathy. In August 2018, an echocardiogram reported his left ventricular ejection fraction is 20 to 25%. He is on guideline directed medical therapy. He presents to the hospital at this time with nonexertional, poorly characterized and atypical chest pain. EKG was normal sinus rhythm, left axis deviation, no acute changes. Serial troponin levels x4 were normal. Chest x- ray showed mild cardiomegaly otherwise clear lungs, no edema and no heart failure decompensation. His INR on this presentation was therapeutic at 2.6. The patient currently is in his room on the telemetry floor looks and feels comfortable in no acute distress. Past History Past Medical History: diabetes, heart failure, hypertension, hyperlipidemia, other (Endocarditis) Past Surgical History: valve replacement Medications and Allergies Allergies Allergy/AdvReac Type Severity Reaction Status Date / Time No Known Allergies Allergy Unverified 01/24/14 16:20 Home Medications Medication Instructions Recorded Confirmed Last Taken Type Warfarin [Coumadin] 7.5 mg PO QDAY #30 tablet 08/23/18 Unknown Rx Insulin NPH Hum/Reg Insulin Hm 03/15/21 Unknown History [HumuLIN 70/30 Kwikpen] Active Meds: Active Medications Acetaminophen (Acetaminophen 325 Mg Tab) 650 mg PO Q6H PRN PRN Reason: Pain, Mild (1-3) Atorvastatin Calcium (Atorvastatin 40 Mg Tab) 40 mg PO QHS YOAN Dextrose (Dextrose 50% In Water (25gm) 50 Ml Syringe) 0 ml IV Q30MIN PRN; Protocol PRN Reason: Hypoglycemia Hydralazine HCl (Hydralazine 20 Mg/1 Ml Inj) 10 mg IV Q6H PRN PRN Reason: Blood Pressure Insulin Human Lispro (Insulin Lispro 100 Unit/Ml) 0 unit SUB-Q ACHS YOAN; Protocol Last Admin: 03/15/21 12:10 Dose: 2 unit Documented by: Morphine Sulfate (Morphine 2 Mg/1 Ml Inj) 2 mg IV Q5MIN PRN PRN Reason: Chest Pain Nitroglycerin (Nitroglycerin 0.4 Mg Tab Subl) 0.4 mg SL Q5M PRN PRN Reason: Chest Pain Pantoprazole Sodium (Pantoprazole 40 Mg Tab) 40 mg PO QDAY [facility] Last Admin: 03/15/21 11:46 Dose: 40 mg Documented by: Sodium Chloride (Sodium Chloride 0.9% 10 Ml Flush Syringe) 10 ml IV PRN PRN PRN Reason: LINE FLUSH Tramadol HCl (Tramadol 50 Mg Tab) 50 mg PO Q6H PRN PRN Reason: Pain, Moderate (4-6) Warfarin Sodium (Warfarin 7.5 Mg Tab) 7.5 mg PO QDAY@1700 [facility]; Protocol Review of Systems Cardiovascular: chest pain, no orthopnea, no palpitations, no rapid/irregular heart beat, no edema, no syncope, no lightheadedness, no shortness of breath Physical Examination Vital Signs Temp Pulse Resp BP Pulse Ox 98.8 F 78 16 129/90 97 03/14/21 22:48 03/14/21 22:48 03/14/21 22:48 03/14/21 22:48 03/14/21 22:48 General appearance: no acute distress HEENT: Positive: PERRL Neck: Positive: neck supple Cardiac: Positive: Reg Rate and Rhythm, Systolic Murmur Lungs: Positive: Decreased Breath Sounds Neuro: Positive: Grossly Intact Abdomen: Positive: Soft Male genitourinary: Positive: deferred Skin: Positive: Clear Extremities: Absent: edema Results 03/15/21 01:39 03/15/21 01:39 Cardiac Enzymes 03/14/21 Range/Units 23:19 AST 22 (5-40) units/L Coagulation 03/14/21 Range/Units 23:19 PT 28.6 H (12.2-14.9) Sec. INR 2.66 H (0.87-1.13) APTT 37.5 H (24.2-36.6) Sec. CBC 03/14/21 03/15/21 Range/Units 23:19 01:39 WBC 4.8 4.6 (4.5-11.0) K/mm3 RBC 4.43 4.48 (3.65-5.03) M/mm3 Hgb 15.2 15.3 H (11.8-15.2) gm/dl Hct 43.4 43.3 (35.5-45.6) % Plt Count 183 169 (140-440) K/mm3 Lymph # (Auto) 1.4 1.2 (1.2-5.4) K/mm3 [place] # (Auto) 0.5 0.4 (0.0-0.8) K/mm3 Eos # (Auto) 0.1 0.1 (0.0-0.4) K/mm3 Baso # (Auto) 0.0 0.0 (0.0-0.1) K/mm3 Comprehensive Metabolic Panel 03/14/21 03/15/21 Range/Units 23:19 01:39 Sodium 140 137 (137-145) mmol/L Potassium 4.2 4.3 (3.6-5.0) mmol/L Chloride 104.0 102.8 (98-107) mmol/L Carbon Dioxide 26 26 (22-30) mmol/L BUN 22 H 20 (9-20) mg/dL Creatinine 0.8 0.8 (0.8-1.3) mg/dL Glucose 143 H 141 H (75-100) mg/dL Calcium 8.7 8.7 (8.4-10.2) mg/dL AST 22 (5-40) units/L ALT 16 (7-56) units/L Alkaline Phosphatase 81 (35-129) units/L Total Protein 6.9 (6.3-8.2) g/dL Albumin 4.3 (3.9-5) g/dL EKG interpretations - Telemetry EKG Rhythm: Sinus Rhythm Assessment and Plan - Patient Problems (1) H/O mitral valve replacement with mechanical valve Current Visit: Yes Status: Acute Plan to address problem: Patient has a history of mechanical mitral valve replacement, on warfarin therapy, INR is 2.6. Presented with atypical, musculoskeletal type chest pain, no anginal characteristics to his pain. ECGs and serial troponin levels are benign. (2) Nonischemic cardiomyopathy Current Visit: Yes Status: Acute Plan to address problem: Patient has a nonischemic cardiomyopathy with left ventricular ejection fraction of 20 to 25% 2 years ago, an echocardiogram has been ordered for left ventricular function reassessment and reassessment of the mechanical mitral valve. The echo findings will be reviewed.
[2021-03-15] MEDS ORDERED: WARFARIN 7.5 MG TAB PO SCH (17:00)
[2021-03-16 06:42] LABS: INR 1.8 (0.87-1.13)
[2021-03-16] MEDS: INSULIN LISPRO 100 UNIT/ML SUB-Q SCH (08:44)
[2021-03-16] MEDS: PANTOPRAZOLE 40 MG TAB PO SCH (10:49)
--- NOTE | 2021-03-16 11:27 | Discharge Summary ---
Providers - Providers Date of Admission: 03/15/21 00:16 Date of discharge: 03/16/21 Attending physician: HOME MARX MD 03/15/21 Consult to Cardiac Rehabilitation [CONS] Routine Reason For Exam: Phase I 03/15/21 01:04 Consult to Cardiology [CONS] Routine Consulting Provider: MAURO FERNANDEZ Reason For Exam: Chest pain Consult to Dietitian/Nutrition [CONS] Routine Physician Instructions: Reason For Exam: Reason for Consult: Diet education Primary care physician: [facility] Hospitalization Reason for admission: Chest pain, CAD status post CABG, diabetes Condition: Stable Hospital course: History of present illness: 56 years old male with past medical history of diabetes hypertension and [place] was brought to the emergency room because of chest pain which is sharp 10/10 constant in the left side of the chest for the past 2 hours prior to arrival. Patient states that the symptoms are better with rest and worse with exertion. Patient denies fever chills. Patient denies cough. Patient denies burping. Patient denies acid reflux. Patient states that the shortness of breath is better with rest and worse with exertion. Patient states he has not taken his cholesterol medications in 2 months. Patient states he takes an aspirin every day. Initial cardiac enzyme in the ER is 0.010. Hospital course Patient is admitted to the floor and serial troponins were negative. Echo was done and showed improvement in ejection fraction currently EF is 40 to 45%. Patient denied any shortness of breath or chest pain after admission. Patient was seen by cardiology. Patient is on Coumadin and advised to continue increase tonight's dose because his INR this morning was 1.8. He was 2.6 yesterday. Cardiology cleared him as advised to continue his home medications. I have discussed with the patient and he said he has all his medications and he does not need any refill. Discharged home in a stable condition. 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 Disposition: TO HOME OR SELFCARE Final Discharge Diagnosis (Prints w/discharge instructions): Chest pain due to costochondritis. CAD status post CABG. Diabetes mellitus Time spent for discharge: 35-minutes - Discharge Diagnoses (1) H/O mitral valve replacement with mechanical valve Status: Acute (2) Nonischemic cardiomyopathy Status: Acute (3) Chest pain Status: Acute Qualifiers: Chest pain type: unspecified Qualified Code(s): R07.9 - Chest pain, unspecified (4) History of endocarditis Status: Acute (5) Hx of CABG Status: Acute (6) S/P MVR (mitral valve replacement) Status: Acute Core Measure Documentation - Palliative Care Palliative Care/ Comfort Measures: Not Applicable - Core Measures Any of the following diagnoses?: none Exam - Physical Exam Narrative exam: Not in cardiopulmonary distress. The patient is obese. Vital signs as documented. Head exam is unremarkable. No scleral icterus . Neck is without jugular venous distension, thyromegaly, or carotid bruits. Lungs are clear to auscultation. Cardiac exam reveals regular rate and Rhythm. Abdominal exam reveals normal bowel sounds, nontender, no organomegaly. Extremities are nonedematous and both femoral and pedal pulses are normal. LEADER TIER: Alert and oriented 3. No focal weakness. - Constitutional Vitals: Temp Pulse Resp BP Pulse Ox 98.3 F 58 L 18 101/63 97 03/16/21 07:48 03/16/21 07:48 03/16/21 07:48 03/16/21 07:48 03/16/21 08:29 Plan Activity: no restrictions Weight Bearing Status: Full Weight Bearing Diet: low cholesterol, low salt, diabetic Follow up with: PRIMARY CAREMD [Primary Care Provider] - 7 Days Forms: Warfarin Discharge Instruction
[2021-03-16 12:17] VITALS: BP 105/67
--- NOTE | 2021-03-16 13:39 | Progress Note ---
Assessment and Plan - Patient Problems (1) H/O mitral valve replacement with mechanical valve Current Visit: Yes Status: Acute Plan to address problem: Patient is on chronic warfarin therapy, target INR 2.5-3.5. INR today is 1.8, he should receive a larger than normal dose of warfarin today to return him to the therapeutic range. Otherwise stable for cardiac discharge. (2) Nonischemic cardiomyopathy Current Visit: Yes Status: Acute Plan to address problem: Continue guideline directed medical therapy for chronic nonischemic cardiomyopathy. Subjective Date of service: 03/16/21 Interval history: Patient is comfortable, no cardiac complaints, looks and feels well. His INR today is 1.8. Objective Vital Signs Temp Pulse Resp BP BP Pulse Ox 03/16/21 12:00 69 03/16/21 11:25 98.4 F 69 16 105/67 94 03/16/21 08:29 97 03/16/21 07:48 98.3 F 58 L 18 101/63 94 03/16/21 04:00 97.9 F 60 16 134/86 03/16/21 00:00 98.4 F 62 20 113/66 03/15/21 20:49 60 03/15/21 20:00 98 F 66 16 122/74 03/15/21 16:10 98.6 F 57 L 18 112/65 94 - Physical Examination General: Appears Well, No Apparent Distress HEENT: Positive: PERRL Neck: Positive: neck supple Cardiac: Positive: Reg Rate and Rhythm Lungs: Positive: Decreased Breath Sounds Neuro: Positive: Grossly Intact Abdomen: Positive: Soft Skin: Positive: Clear Extremities: Absent: edema - Labs and Meds Coagulation 03/16/21 Range/Units 06:06 PT 21.3 H (12.2-14.9) Sec. INR 1.80 H (0.87-1.13)
[2021-03-16] MEDS ORDERED: WARFARIN 10 MG TAB PO SCH (17:00)
== END 2021-03-16 12:00 | disposition home or self-care (01) ==
LOC: ED 22:38 → 4A 03-15 00:16
PROVIDERS: ADMIT Hospitalist; ATTEND Internal Medicine
DX: I24.9 Acute ischemic heart disease, unspecified (principal); I25.10 Atherosclerotic heart disease of native coronary artery without angina pectoris; I10 Essential (primary) hypertension; R07.9 Chest pain, unspecified; E78.5 Hyperlipidemia, unspecified; I25.2 Old myocardial infarction; E11.9 Type 2 diabetes mellitus without complications; I38 Endocarditis, valve unspecified; I42.8 Other cardiomyopathies; Z79.01 Long term (current) use of anticoagulants; Z79.4 Long term (current) use of insulin; Z79.899 Other long term (current) drug therapy; Z98.890 Other specified postprocedural states; Z87.891 Personal history of nicotine dependence; Z95.1 Presence of aortocoronary bypass graft
CPT/HCPCS: 36415; 71045; 80048; 80053; 82962; 84484; 85025; 85610; 85730; 93005; 93306; 96372; 99291; A9270; G0378; J1815